=== PATIENT | male | born 1980 | race Two or more races ===

== ENCOUNTER 2025-02-28 15:27 | Emergency (ER) | payer OTHER ==
[~2025-02-28] VITALS: Ht 182.9 cm; Wt 86.2 kg
[2025-02-28] MEDS ORDERED: IBUP-1490 PO (17:03)
[2025-02-28 17:16] VITALS: BP 135/85; TEMP 98.5; O2SAT 99
== END 2025-02-28 17:20 | disposition home or self-care (01) ==
LOC: ER 15:34
DX: S93.491A Sprain of other ligament of right ankle, initial encounter (principal); S33.5XXA Sprain of ligaments of lumbar spine, initial encounter; R42 Dizziness and giddiness; X50.1XXA Overexertion from prolonged static or awkward postures, initial encounter; Y93.01 Activity, walking, marching and hiking; Y92.89 Other specified places as the place of occurrence of the external cause; Y99.8 Other external cause status
CPT/HCPCS: 72131-TC; 73610-TC